=== PATIENT | male | born 1995 | race Two or more races ===

== ENCOUNTER 2021-12-07 02:52 | Emergency (ER) | payer MEDICAID ==
[~2021-12-07] VITALS: Ht 165.1 cm; Wt 81.6 kg
[2021-12-07 02:56] VITALS: BP 137/93
[2021-12-07] MEDS ORDERED: EMTRICITABINE-TENOFOVIR 200/300MG(TRUVADA) PO ONE (04:30)
[2021-12-07 05:32] LABS: Basophils # (auto) 0 10 ^3/uL (0-0.2); Basophils % (auto) 0.4 % (0.0-2.0); Eosinophils # (auto) 0 10 ^3/uL (0-0.8); Eosinophils % (auto) 0.2 % (0.0-7.0); Hematocrit 47.1 % (41.0-53.0); Hemoglobin 16.4 g/dL (13.5-17.5); Lymphocytes # (auto) 1.4 10 ^3/uL (0.4-5.4); Lymphocytes % (auto) 21.2 % (10.0-50.0); Mean Corpuscular Hemoglobin 31.8 pg (28.0-32.0); Mean Corpuscular Hgb Conc. 34.8 g/dL (32.0-36.0); Mean Corpuscular Volume 91.3 fL (80.0-100.0); Monocytes # (auto) 0.3 10 ^3/uL (0-1.3); Monocytes % (auto) 4.6 % (0.0-12.0); Neutrophils # (auto) 4.8 10 ^3/uL (1.6-8.6); Neutrophils % (auto) 73.6 % (37.0-80.0); Nucleated Red Blood Cells % 0.1 %; Red Blood Cells 5.16 10^6/uL (4.5-5.90); Red Cell Distribution Width 12.6 % (11.8-14.3); White Blood Cell 6.6 10^3/uL (4.4-10.8)
[2021-12-07 05:46] LABS: Albumin 4.6 g/dL (3.4-5.0); Bilirubin, Direct 0.3 mg/dL (0-0.2); Calcium 9.5 mg/dL (8.5-10.1)
[2021-12-07 05:49] LABS: Bilirubin, Total 1.8 mg/dL (0.2-1.0); Total Protein 8.2 g/dL (6.4-8.2)
== END 2021-12-07 04:51 | disposition home or self-care (01) ==
LOC: ER 02:52
DX: S61.032A Puncture wound without foreign body of left thumb without damage to nail, initial encounter (principal); W46.1XXA Contact with contaminated hypodermic needle, initial encounter; Y93.89 Activity, other specified; Y92.89 Other specified places as the place of occurrence of the external cause; Y99.8 Other external cause status
CPT/HCPCS: 36415; 80053; 80076; 85025; 86703